=== PATIENT | male | born 1950 ===

== ENCOUNTER 2018-02-22 10:51 | Emergency (ER) | payer MEDICARE, OTHER ==
[2018-02-22 11:14] VITALS: BP 164/97
--- NOTE | 2018-02-22 11:43 | ED ---
Complex/Multi-Sys Presentation - HPI Summary HPI Summary: 67 yr old male with two complaints: 1) The patient complains of left shoulder pain, worse with abduction past 90 degrees. Onset two weeks ago when he was "wrestling" with a refrigerator. Pain is moderate. 2) Five months of left sided low back pain, left hip pain, and pain in the lateral left leg area. He has been going to a chiropractor and having spine adjusted without success. He has pain that is moderate in the low back left lower extremity area. Denies focal weakness, numbness. He denies urinary changes, incontinence, and bowel trouble. Denies low back pain. He has not seen a primary care doctor in 10 years. - History Of Current Complaint Chief Complaint: UCGeneralIllness Time Seen by Provider: 02/22/18 11:21 - Allergies/Home Medications Allergies/Adverse Reactions: Allergies Allergy/AdvReac Type Severity Reaction Status Date / Time No Known Allergies Allergy Verified 02/22/18 11:05 Home Medications: Home Medications NK [No Home Medications Reported] 02/22/18 [History Confirmed 02/22/18] PMH/Surg Hx/FS Hx/Imm Hx - Surgical History Surgery Procedure, Year, and Place: 2009 Cardiac cath (no clogged arteries). [facility] Infectious Disease History: No Infectious Disease History: Denies: Traveled Outside the [place] in Last 30 Days - Social History Alcohol Use: Daily Alcohol Amount: 6 pack Substance Use Type: Reports: None Smoking Status (MU): Never Smoked Tobacco Review of Systems Constitutional: Negative Gastrointestinal: Negative Genitourinary: Negative Positive: Other - positive for left shoulder pain and left hip, back pain, Skin: Negative Negative: Weakness, Paresthesia, Numbness Psychological: Normal All Other Systems Reviewed And Are Negative: Yes Physical Exam Triage Information Reviewed: Yes Vital Signs On Initial Exam: Initial Vitals Temp Pulse Resp BP Pulse Ox 98.6 F 81 18 164/97 97 02/22/18 11:05 02/22/18 11:05 02/22/18 11:05 02/22/18 11:05 02/22/18 11:05 Vital Signs Reviewed: Yes Appearance: Positive: Well-Appearing, No Pain Distress Skin: Positive: Warm, Skin Color Reflects Adequate Perfusion Head/Face: Positive: Normal Head/Face Inspection Eyes: Positive: EOMI ENT: Positive: Normal ENT inspection Neck: Positive: Supple, Nontender Respiratory/Lung Sounds: Positive: Clear to Auscultation, Breath Sounds Present Cardiovascular: Positive: RRR. Negative: Murmur Abdomen Description: Positive: Nontender Musculoskeletal: Positive: Other - tender over the left lateral shoulder. No STS, no effusion, no redness. Pain worse with abduction beyond 90 degrees. The TLS spine is non tender in midline. He has no focal hip tenderness, no focal leg tenderness or swelling. Neurological: Positive: Sensory/Motor Intact, Alert, Oriented to Person Place, Time, CN Intact II-III, Normal Gait, Speech Normal - [place] Coma Scale Best Eye Response: 4 - Spontaneous Best Motor Response: 6 - Obeys Commands Best Verbal Response: 5 - Oriented Coma Scale Total: 15 Diagnostics - Vital Signs Vital Signs Temp Pulse Resp BP Pulse Ox 02/22/18 11:05 98.6 F 81 18 164/97 97 - Laboratory Lab Statement: Any lab studies that have been ordered have been reviewed, and results considered in the medical decision making process. - Radiology lumbar, hip, pelvis, shoulder Xray Interpretation: Positive (See Comments) - AC joint arthritis, and DJD lumbar spine. 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 He needs follow up with PMD for BP, and also further eval of spine as outpatient. recommend ER for any worsenin symptoms. Patient knows he needs a primary at the age of 67 and will not delay any longer calling [facility] referral center for a new PMD. - Diagnoses Provider Diagnoses: Back pain, Hypertension, Shoulder pain, left Discharge - Sign-Out/Discharge Documenting (check all that apply): Discharge/Admit/Transfer - Discharge Plan Condition: Good Disposition: HOME Patient Education Materials: Hypertension (ED), Osteoarthritis (ED), Acute Low Back Pain (ED), Arthralgia (ED) Referrals: Mingo Fernandez MD [Medical Doctor] - 2 Days [facility] PHYSICIAN REFERRAL [Outside] Non Staff,Doctor [Primary Care Provider] - 2 Days - Billing Disposition and Condition Condition: GOOD Disposition: HOME
--- NOTE | 2018-02-22 12:05 | RAD ---
Indication: LEFT hip pain following lifting injury several weeks ago. Comparison: No relevant prior exams available on the [facility] PACS for comparison. Technique: AP pelvis and AP and frog-leg lateral views LEFT hip. Report: No radiographic evidence for LEFT hip or pelvis fracture or articular malalignment. Preserved LEFT hip joint space. No significant arthropathic change evident at the LEFT hip. Lumbar sacral spine degenerative spondylosis and facet joint osteoarthritis. Unremarkable soft tissue contours. IMPRESSION: Negative radiographic exam of the LEFT hip.
--- NOTE | 2018-02-22 12:06 | RAD ---
Indication: Left shoulder pain. 4 views of left shoulder demonstrates AC joint arthritis. There is no fracture or dislocation. No other bone or joint abnormality is noted. IMPRESSION: AC joint arthritis without fracture.
--- NOTE | 2018-02-22 12:07 | RAD ---
Indication: Chronic low back pain with radiation into the LEFT hip. Lifting injury several weeks ago. Comparison: No relevant prior exams available on the [facility] PACS for comparison. Technique: AP, lateral, and oblique views lumbar sacral spine. Report: Negative for fracture or spondylolysis. Grade 1 degenerative L5-S1 anterolisthesis. Mild RIGHT convex curve centered at L3. Diffuse degenerative spondylosis and facet joint osteoarthritis. Disc space narrowing is moderately severe throughout. Facet joint osteoarthritis is severe at L3-L4 through L5-S1. Unremarkable paraspinal soft tissue contours. IMPRESSION: Multilevel advanced degenerative spondylosis and facet joint osteoarthritis. Associated degenerative grade 1 L5-S1 anterolisthesis. No fracture evident.
== END 2018-02-22 12:31 | disposition home or self-care (01) ==
LOC: UCCORT 10:51
DX: M47.817 Spondylosis without myelopathy or radiculopathy, lumbosacral region (principal); M19.012 Primary osteoarthritis, left shoulder; M25.552 Pain in left hip
CPT/HCPCS: 72110; 99201; G0463